=== PATIENT | male | born 1950 | race Hispanic/Latino ===

== ENCOUNTER → 2017-11-10 | Day surgery (SDC) | payer MEDICARE ==
[2017-11-03 13:44] LABS: BASOPHILS % 0.5 % (0.0-1.0); EOSINOPHILS # (AUTO) 0.1 (0.0-0.4); EOSINOPHILS % 1.4 % (0.0-6.0); HEMATOCRIT 43.1 % (38.2-49.6); HEMOGLOBIN 14.8 g/dL (14.0-18.0); LYMPHOCYTES # (AUTO) 2.5 (1.0-3.2); LYMPHOCYTES % 28.4 % (18.0-39.1); MEAN CORPUSCULAR HEMOGLOBIN 31.4 pg (28-32); MEAN CORPUSCULAR HGB CONC 34.3 g/dL (31-35); MEAN CORPUSCULAR VOLUME 91.3 fL (81-99); MONOCYTES # (AUTO) 0.6 (0.2-0.8); MONOCYTES % 6.8 % (4.4-11.3); NEUTROPHILS # (AUTO) 5.5 (2.1-6.9); NEUTROPHILS % 62.6 % (38.7-80.0); PLATELET COUNT 280 x10e3/uL (140-360); RED BLOOD COUNT 4.72 x10e6/uL (4.3-5.7); RED CELL DISTRIBUTION WIDTH 12.1 % (11.7-14.4)
[2017-11-03 14:14] LABS: ANION GAP 14.3 mmol/L (8-16); CALCIUM 10.4 mg/dL (8.4-10.2); CREATININE, SERUM 1.35 mg/dL (0.72-1.25); POTASSIUM 4.3 mmol/L (3.5-5.1)
--- NOTE | 2017-11-03 14:37 | Diagnostic Imaging Report ---
EXAMINATION: CHEST 2 VIEWS INDICATION: \S\PRE OP \[id number] \S\[id number] \S\ANESTH PROT COMPARISON: None FINDINGS: PA and lateral views TUBES and LINES: None. LUNGS: Lungs are well inflated. There is no evidence of pneumonia or pulmonary edema. Well-circumscribed 1.1 cm right apical density. PLEURA: No pleural effusion or pneumothorax. HEART AND MEDIASTINUM: The cardiomediastinal silhouette is unremarkable. BONES AND SOFT TISSUES: No acute osseous lesion. Soft tissues are unremarkable. UPPER ABDOMEN: No free air under the diaphragm. IMPRESSION: No acute thoracic abnormality. Well-circumscribed 1.1 cm right apical density, could be external to patient or represent an osseous lesion (bone island) versus a calcified granuloma. Signed by: Dr. Owen Giordano MD on 11/03/2017 2:34 PM
[~2017-11-10] MED LIST: ACETAMINOPHEN 1000 MG/100 ML 100 ML IV ONE; ACETAMINOPHEN 1000 MG/100 ML IV ONE; ATORVASTATIN PO; CEFAZOLIN SOD 2 GM/D5W 50ML 50 ML IV ONE; EPINEPHRINE HCL INJ 1 MG/ML AMP ONE; FENTANYL CITRATE/PF 100MCG/2 ML INJ ONE; FLUCONAZOLE200 MG PO; GLIPIZIDE5 MG PO; INSULIN REGULAR, HUMAN 100 UNIT/1 ML 3ML VIAL ONE; LIDOCAINE 2%/ EPINEPHRINE 20ML MDV ONE; LIDOCAINE HCL 2% LOCAL INJ 5 ML SDV VIAL INJ ONE; METFORMIN HCL500 MG PO; MIDAZOLAM HCL 2 MG/2 ML VIAL ONE; ONDANSETRON HCL INJ 2 MG/ML VIAL ONE; PROPOFOL IV EMULSION 10 MG/ML 20 ML VIAL ONE; ROCURONIUM BROMIDE 10 MG/ML 5ML VIAL ONE; ROPIVACAINE 0.5% 5 MG/ML 30 ML SDV ONE; SEVOFLURANE INHAL SOLN 250 ML PEN BTL ONE; SUGAMMADEX SODIUM 200 MG/2 ML VIAL IV ONE
[2017-11-10 15:50] VITALS: BP 138/82
--- NOTE | 2017-11-11 11:12 | Operative Report ---
DATE OF PROCEDURE: November 10, 2017 PREOPERATIVE DIAGNOSIS: Right shoulder labral tear. POSTOPERATIVE DIAGNOSES 1. Right shoulder biceps tendon tear. 2. Right shoulder labral tear. 4. Right shoulder rotator cuff tear. OPERATIONS/PROCEDURES PERFORMED 1. The patient underwent a right shoulder examination under anesthesia. 2. Right shoulder arthroscopy. 3. Right shoulder debridement of a torn labrum. 4. Right shoulder biceps tenolysis. 5. Right shoulder arthroscopic rotator cuff reconstruction. 6. Right shoulder arthroscopic subacromial decompression and acromioplasty. WATCH CRYSTAL CUTTER: None. ANESTHESIA: General endotracheal intubation anesthesia. IV FLUIDS: Per the anesthesia record. BRIEF DESCRIPTION OF THE PATIENT'S OPERATIVE PROCEDURE: Mr. Ildefonso Russell was taken to the operating room and placed in the supine position on the operating room table. Following induction of general anesthesia, as well as endotracheal intubation. The patient's table was converted to a beach chair type position. The patient's upper extremity was examined under anesthesia. He was found to have full passive range of motion of the shoulder joint. There were no gross abnormalities. The patient's upper extremity was prepped and draped in a standard surgical fashion. Standard posterolateral and anterior portals were created without difficulty. The scope was placed within the shoulder joint atraumatically. Examination of the glenohumeral articulation demonstrated no significant evidence of chondromalacia. There was no loose bodies within the shoulder joint. A probe was placed in the shoulder joint and examination of the labrum demonstrated a type 4 labral injury with extensive damage to the biceps tendon. The entire intra-articular portion of the biceps tendon was frayed and torn with near complete tearing of the biceps itself. A shaver was placed in the shoulder joint, and the biceps tendon was debrided. The labral injury was also debrided at this time. A more thorough examination of the biceps tendon demonstrated a near 90% tear of the biceps tendon with significant fraying of the remaining tissues. A biceps tenolysis was therefore performed at this time. A shaver was used to further debride the insertion site of the biceps tendon and the superior aspect of the labrum. Examination of the leading edge of the rotator cuff also demonstrated a significant partial thickness tear. Multiple fibers of the rotator cuff were retracted proximally to the level of the glenoid. This was also further debrided. The shaver as well as an elevator was used to complete the patient's partial rotator cuff tear. A shaver was then used to debride the insertion site to a bleeding bony bed. The shoulder was deflated of its sterile normal saline. The scope was then transferred to the subacromial space, and a lateral portal was created through an outside-in technique. The subacromial space was found to have significant bursitis. A bursectomy was performed at this time. The rotator cuff injury was easily identified. The insertion site was further debrided to a bleeding bony bed. An anterolateral portal was created without difficulty. An anchor was inserted in the greater tuberosity of the humerus. The suture arms from that anchor were then woven through the rotator cuff tissue and advanced to the rotator cuff tissue into its normal insertion site. This was tied firmly directly over the rotator cuff tear. This resulted in complete reapproximation of the rotator cuff injury. The coracoacromial ligament was then resected and aggressive acromioplasty was performed. The shoulder was then deflated of its sterile normal saline. The portal sites were closed and sterile dressings were applied. The patient was then awakened and taken to the postanesthesia care unit in stable condition. Job#: [id number] KENDRICK
== END | disposition home or self-care (01) ==
LOC: OR 08:39
PROVIDERS: ATTEND Specialist
DX: S43.421A Sprain of right rotator cuff capsule, initial encounter (principal); S43.431A Superior glenoid labrum lesion of right shoulder, initial encounter; S46.211A Strain of muscle, fascia and tendon of other parts of biceps, right arm, initial encounter; M75.51 Bursitis of right shoulder; E11.9 Type 2 diabetes mellitus without complications; E78.00 Pure hypercholesterolemia, unspecified; W11.XXXA Fall on and from ladder, initial encounter; Y92.009 Unspecified place in unspecified non-institutional (private) residence as the place of occurrence of the external cause; Z91.018 Allergy to other foods; Z01.810 Encounter for preprocedural cardiovascular examination; Z01.812 Encounter for preprocedural laboratory examination; Z01.818 Encounter for other preprocedural examination; Z79.84 Long term (current) use of oral hypoglycemic drugs
CPT/HCPCS: 29826; 29827; 36415 ×2; 71046; 80048; 82948; 85025; 93005; J0171; J2001 ×2; J2250; J2405; J2795

== ENCOUNTER → 2018-02-23 | Outpatient (RCR) | payer MEDICARE ==
[~2018-02-23] MED LIST changes: -ACETAMINOPHEN 1000 MG/100 ML 100 ML IV ONE; -ACETAMINOPHEN 1000 MG/100 ML IV ONE; -CEFAZOLIN SOD 2 GM/D5W 50ML 50 ML IV ONE; -EPINEPHRINE HCL INJ 1 MG/ML AMP ONE; -INSULIN REGULAR, HUMAN 100 UNIT/1 ML 3ML VIAL ONE; -LIDOCAINE 2%/ EPINEPHRINE 20ML MDV ONE; -LIDOCAINE HCL 2% LOCAL INJ 5 ML SDV VIAL INJ ONE; -MIDAZOLAM HCL 2 MG/2 ML VIAL ONE; -ONDANSETRON HCL INJ 2 MG/ML VIAL ONE; -PROPOFOL IV EMULSION 10 MG/ML 20 ML VIAL ONE; -ROCURONIUM BROMIDE 10 MG/ML 5ML VIAL ONE; -ROPIVACAINE 0.5% 5 MG/ML 30 ML SDV ONE; -SEVOFLURANE INHAL SOLN 250 ML PEN BTL ONE; -SUGAMMADEX SODIUM 200 MG/2 ML VIAL IV ONE
== END ==
LOC: PT 02-02 10:45
PROVIDERS: ATTEND Specialist
DX: S43.421A Sprain of right rotator cuff capsule, initial encounter (principal); M25.511 Pain in right shoulder; M25.611 Stiffness of right shoulder, not elsewhere classified; M62.81 Muscle weakness (generalized)
CPT/HCPCS: 97110 ×3; 97140; 97162; G8984; G8985